=== PATIENT | female | born 1950 | race Caucasian/White ===

== ENCOUNTER → 2021-09-15 13:19 | Outpatient (BNVA) | payer MEDICARE, BC, SELFPAY | PROVIDERS: Referring Provider Family Medicine; Visit Provider Specialist | DX: M51.9 Unspecified thoracic, thoracolumbar and lumbosacral intervertebral disc disorder (principal); M96.1 Postlaminectomy syndrome, not elsewhere classified; R44.1 Visual hallucinations; R26.81 Unsteadiness on feet; Z87.891 Personal history of nicotine dependence | CPT/HCPCS: 99205 ==